=== PATIENT | female | born 1990 | race Hispanic/Latino ===

== ENCOUNTER 2024-06-06 16:12 | Emergency (ER) | payer OTHER ==
--- NOTE | 2024-06-06 17:25 | RAD REPORT ---
EXAM: Transvaginal OB HISTORY: bleeding COMPARISON: None TECHNIQUE: Multiple grayscale and color Doppler images were obtained in a transvaginal pelvic ultraso und. Spectral analysis of the Doppler waveforms of the ovaries were performed. FINDINGS: UTERUS: There is an intrauterine gestational sac. This contains a yolk sac and pole. [place]-rump length: 0.2 cm which estimates gestational age at 5 week 5 day. A heart rate is detected at 116 bpm. Small subarachnoid hemorrhage. A small amount of free fluid is seen in the pelvis. RIGHT OVARY: Normal flow without focal mass. LEFT OVARY: Normal flow without focal mass. IMPRESSION: 1. Single live intrauterine with estimated age of 5 week 5 day. 2. Small subchorionic hemorrhage which is typically of little significance but consider short-term fo llow-up ultrasound. 3. Bilateral ovarian blood flow.
[2024-06-06 18:05] LABS: Absolute Basophils 0.1 K/uL (0-0.5); Absolute Eosinophils 0.2 K/uL (0-0.5); Absolute Lymphocytes (CBC) 2.7 K/uL (0.7-4.9); Absolute Monocytes 0.6 K/uL (0.1-1.3); Absolute Neutrophil 8.8 K/uL (1.8-8.0); Basophils % 0.7 % (0-1.3); Eosinophils % 1.4 % (0-4.4); Hematocrit 41.2 % (36.0-45.0); Hemoglobin 13.8 g/dL (12.0-15.0); Lymphocytes % 22.1 % (15.3-44.8); MCH 32.2 pg (27.0-35.0); MCHC 33.6 g/dL (32.0-36.0); MPV 9.2 fL (7.6-11.3); Monocytes % 4.9 % (3.3-12.3); Neutrophils % 70.9 % (41.7-73.7); Platelets 212 thou/uL (152-406); RBC Red Blood Cell Count 4.29 M/uL (3.86-4.86)
[2024-06-06 18:16] LABS: Specific Gravity 1.006 (1.005-1.030); Sqamous Epithelial <5 /HPF (None Seen); Urine Bacteria <20 /HPF (<20); Urine Bilirubin NEGATIVE (Negative); Urine Blood 1+ (Negative); Urine Clarity Turbid (Clear); Urine Color Light-Yellow (Yellow); Urine Crystals Unidentified Few /HPF (None Seen); Urine Culture Reflex Order NOT NEEDED; Urine Glucose NEGATIVE (Negative); Urine Ketones NEGATIVE (Negative); Urine Microscopic Reflex YN ORDER UMIC; Urine Nitrite NEGATIVE (Negative); Urine Protein NEGATIVE (Negative); Urine RBC <5 /HPF (None Seen); Urine Urobilinogen Normal (Normal); Urine WBC <5 /HPF (<5); Urine pH 6.5 (5.0-7.0)
[2024-06-06 18:38] LABS: Anion Gap 9.8 mEq/L (5.0-15.0); Potassium 3.8 mEq/L (3.5-5.1)
--- NOTE | 2024-06-06 18:49 | ER ---
Nurse's Notes [facility] Name: Berenice Smith Age: 33 yrs Sex: Female : 1990 Arrival Date: 06/06/2024 Time: 16:12 Bed 20 Private MD: Diagnosis: Threatened Presentation: 06/06 16:24 Chief complaint: Patient states: she was at the help center, and was informed ap3 to come to the ED for further evaluation. patient reports a light flow of brown discharge and mild cramping of which she rates a 3/10 on the pain scale. Coronavirus screen: At this time, the client does not indicate any symptoms associated with coronavirus-19. Ebola Screen: No symptoms or risks identified at this time. Initial Sepsis Screen: Does the patient meet any 2 criteria? No. Patient's initial sepsis screen is negative. Does the patient have a suspected source of infection? No. Patient's initial sepsis screen is negative. Risk Assessment: Do you want to hurt yourself or someone else? Patient reports no desire to harm self or others. Onset of symptoms is unknown. 16:24 Method Of Arrival: Ambulatory ap3 16:24 Acuity: TRAN 3 ap3 Triage Assessment: 16:26 General: Appears in no apparent distress. Behavior is calm, cooperative, appropriate ap3 for age. Pain: Complains of pain in abdomen Pain currently is 3 out of 10 on a pain scale. Neuro: Level of Consciousness is awake, alert, obeys commands, Oriented to person, place, time, situation, Appropriate for age Gait is steady, Speech is normal. Cardiovascular: Patient's skin is warm and dry. Respiratory: Airway is patent Respiratory effort is even, unlabored, Respiratory pattern is regular, symmetrical. GI: Reports cramping. : Reports light flow of brown discharge. 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 - Infectious Disease History:: Denies. - Social history:: Smoking status: Patient denies any tobacco usage or history of. - Family history:: not pertinent. Screenin:27 [facility] ED Fall Risk Assessment (Adult) History of falling in the last 3 months, ap3 including since admission No falls in past 3 months (0 pts) Confusion or Disorientation No (0 pts) Intoxicated or Sedated No (0 pts) Impaired Gait No (0 pts) Mobility Assist Device Used No (0 pt) Altered Elimination No (0 pt) Score/Fall Risk Level 0 - 2 = Low Risk Oriented to surroundings, Maintained a safe environment, Educated pt \T\ family on fall prevention, incl call for assistance when getting out of bed, Assessed \T\ reinforced patient's understanding of fall precautions, Hourly rounding (assess needs \T\ fall precautionary measures) done, Used ambulatory aids as needed (educated on \T\ assisted with), Used gait belt as appropriate. Abuse screen: Denies threats or abuse. Nutritional screening: No deficits noted. Tuberculosis screening: No symptoms or risk factors identified. Assessment: 16:30 General: Appears comfortable, Behavior is calm, cooperative. Pain: Complains of pain in ha1 pelvis Pain does not radiate. Pain currently is 3 out of 10 on a pain scale. Quality of pain is described as crampy, Pain began 4 hours ago. Neuro: Level of Consciousness is awake, alert, obeys commands, Oriented to person, place, time, situation. Cardiovascular: Capillary refill < 3 seconds Patient's skin is warm and dry. Respiratory: Airway is patent Respiratory effort is even, unlabored, Respiratory pattern is regular, symmetrical. GI: Abdomen is round non-distended, Bowel sounds present X 4 quads. : Reports cramping, lower quadrant(s) vaginal bleeding that is light flow, spotty. 17:55 Reassessment: Patient and/or family updated on plan of care and expected duration. Pain ha1 level reassessed. Patient is alert, oriented x 3, equal unlabored respirations, skin warm/dry/pink. 18:42 Reassessment: Patient and/or family updated on plan of care and expected duration. Pain ha1 level reassessed. Patient is alert, oriented x 3, equal unlabored respirations, skin warm/dry/pink. Vital Signs: 16:24 BP 115 / 77; Pulse 75; Resp 17; Temp 98.1(O); Pulse Ox 100% on R/A; Weight 65.77 kg; ap3 Height 5 ft. 1 in. ; Pain 3/10; 17:55 BP 120 / 76; Pulse 76; Resp 17 S; Pulse Ox 100% on R/A; ha1 18:30 BP 129 / 66; Pulse 77; Resp 17 S; Temp 98.1(O); Pulse Ox 100% on R/A; ha1 16:24 Body Mass Index 27.40 (65.77 kg, 154.94 cm) ap3 16:24 Pain Scale: Adult ap3 ED Course: 16:15 Patient arrived in ED. mr 16:17 Raymond Pavon MD is Attending Physician. rt 16:18 Patient has correct armband on for positive identification. Placed in gown. Bed in low ha1 position. Call light in reach. Side rails up X 1. Adult w/ patient. 16:18 Provided Education on: plan of care . ha1 16:26 Triage completed. ap3 16:28 Arm band placed on right wrist. ap3 17:17 US Transvaginal Ob In Process Unspecified. EDIA 17:55 Serena Munoz RN is Primary Nurse. ha1 17:55 Abo/rh Typing Sent. ha1 17:55 Basic Metabolic Panel Sent. ha1 17:55 CBC with Diff Sent. ha1 17:55 Quantitative Hcg Sent. ha1 17:55 Urinalysis w/ reflexes Sent. ha1 17:56 Inserted saline lock: 20 gauge in right antecubital area, using aseptic technique. ha1 Blood collected. Flushed with 10 mL NS. 19:01 No provider procedures requiring assistance completed. IV discontinued, intact, ha1 bleeding controlled, No redness/swelling at site. Pressure dressing applied. Administered Medications: No medications were administered Medication: 18:44 VIS not applicable for this client. ha1 Outcome: 18:49 Discharge ordered by . rt 19:01 Discharged to home ambulatory, with family, ha1 19:01 Condition: stable 19:01 Discharge instructions given to patient, Instructed on discharge instructions, follow up and referral plans. Demonstrated understanding of instructions, follow-up care, 19:01 Patient left the ED. ha1 Signatures: Dispatcher [employer] EDIA Charles Dina, Reg Reg mr Brook Kline RN RN ap3 Serena Munoz RN RN ha1 [place], Raymond, MD MD rt
--- NOTE | 2024-06-06 18:49 | EDPHYS ---
Physician Documentation [facility] Name: Berenice Smith Age: 33 yrs Sex: Female : 1990 Arrival Date: 06/06/2024 Time: 16:12 Bed 20 Private MD: ED Physician Raymond Pavon HPI: 06/06 17:15 This 33 yrs old Female presents to ER via Ambulatory with complaints of rt Vaginal Bleeding, + Preg <12wks. 17:15 Patient who is a G1, P0 currently at 6 weeks presents to the ED with vaginal bleeding rt for the past 4 days, initially started as brown, then passed some clots and is now starting to lighten up with no further clots and no tissue passage. Denies any abdominal pain, acute complaints, symptoms are moderate in severity, no other aggravating or alleviating factors.. 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 - Infectious Disease History:: Denies. - Social history:: Smoking status: Patient denies any tobacco usage or history of. - Family history:: not pertinent. ROS: 17:15 Constitutional: Negative for fever, chills, and weight loss, Cardiovascular: Negative rt for chest pain, palpitations, and edema, Respiratory: Negative for shortness of breath, cough, wheezing, and pleuritic chest pain, Abdomen/GI: Negative for abdominal pain, nausea, vomiting, diarrhea, and constipation, Skin: Negative for injury, rash, and discoloration, Neuro: Negative for headache, weakness, numbness, tingling, and seizure, 17:15 : Positive for vaginal bleeding, Negative for urinary symptoms, Exam: 17:15 Constitutional: This is a well developed, well nourished patient who is awake, alert, rt and in no acute distress. Head/Face: Normocephalic, atraumatic. Chest/axilla: Normal chest wall appearance and motion. Nontender with no deformity. No lesions are appreciated. Cardiovascular: Regular rate and rhythm with a normal S1 and S2. No gallops, murmurs, or rubs. Normal PMI, no JVD. No pulse deficits. Respiratory: Lungs have equal breath sounds bilaterally, clear to auscultation and percussion. No rales, rhonchi or wheezes noted. No increased work of breathing, no retractions or nasal flaring. Abdomen/GI: Soft, non-tender, with normal bowel sounds. No distension or tympany. No guarding or rebound. No evidence of tenderness throughout. Skin: Warm, dry with normal turgor. Normal color with no rashes, no lesions, and no evidence of cellulitis. MS/ Extremity: Pulses equal, no cyanosis. Neurovascular intact. Full, normal range of motion. Neuro: Awake and alert, GCS 15, oriented to person, place, time, and situation. Cranial nerves II-XII grossly intact. Motor strength 5/5 in all extremities. Sensory grossly intact. Cerebellar exam normal. Normal gait. Vital Signs: 16:24 BP 115 / 77; Pulse 75; Resp 17; Temp 98.1(O); Pulse Ox 100% on R/A; Weight 65.77 kg; ap3 Height 5 ft. 1 in. ; Pain 3/10; 17:55 BP 120 / 76; Pulse 76; Resp 17 S; Pulse Ox 100% on R/A; ha1 18:30 BP 129 / 66; Pulse 77; Resp 17 S; Temp 98.1(O); Pulse Ox 100% on R/A; ha1 16:24 Body Mass Index 27.40 (65.77 kg, 154.94 cm) ap3 16:24 Pain Scale: Adult ap3 MDM: 16:22 Medical Screening Exam initiated rt 20:34 Differential diagnosis: Threatened AB, missed AB, ectopic . Data reviewed: rt vital signs, nurses notes, lab test result(s), radiologic studies. Counseling: I had a detailed discussion with the patient and/or guardian regarding the historical points, exam findings, and any diagnostic results supporting the discharge/admit diagnosis, lab results, radiology results, the need for outpatient follow up. 06/06 16:38 Order name: Abo/rh Typing; Complete Time: 18:34 rt 06/06 16:38 Order name: Basic Metabolic Panel; Complete Time: 18:46 rt 06/06 16:38 Order name: CBC with Diff; Complete Time: 18:11 rt 06/06 16:38 Order name: Quantitative Hcg; Complete Time: 18:46 rt 06/06 16:38 Order name: Urinalysis w/ reflexes; Complete Time: 18:34 rt 06/06 16:38 Order name: US Transvaginal Ob; Complete Time: 17:27 rt 06/06 16:38 Order name: IV Saline Lock; Complete Time: 17:55 rt 06/06 16:38 Order name: Labs collected and sent; Complete Time: 17:55 rt 06/06 16:38 Order name: NPO; Complete Time: 17:55 rt Administered Medications: No medications were administered Disposition Summary: 06/06/24 18:49 Discharge Ordered Notes: Location: Home rt Problem: new rt Symptoms: have improved rt Condition: Stable rt Diagnosis - Threatened rt Followup: rt - With: Private Physician - When: 5 - 6 days - Reason: Discharge Instructions: - Discharge Summary Sheet rt - Threatened Miscarriage rt - Vaginal Bleeding During , First Trimester rt Forms: - Medication Reconciliation Form rt - Antibiotic Education rt - Prescription Opioid Use rt - Patient Portal Instructions rt - Leadership Thank You Letter rt Signatures: Dispatcher [employer] EDMS Brook Kline RN RN ap3 Raymond Pavon MD MD rt Corrections: (The following items were deleted from the chart) 16:39 16:39 ABO/RH TYPING+BB.LAB.BRZ ordered. EDMS EDMS 16:39 16:39 BASIC METABOLIC PANEL+C.LAB.BRZ ordered. EDMS EDMS 16:39 16:39 CBC+H.LAB.BRZ ordered. EDMS EDMS 16:39 16:39 QUANTITATIVE HCG+C.LAB.BRZ ordered. EDMS EDMS 16:39 16:39 Urinalysis+U.LAB.BRZ ordered. EDMS EDMS
--- OUTSIDE RECORDS SUMMARY | 2024-06-07 02:27 | XMS REPORT | Continuity of Care Document ---
Author Name Unknown Address [address] [facility] [address] [place] [id number] [facility] thconnect Address [address] [place] [address] Care Team Providers Care Hospital Admissions Clerk Name Role Phone [email or web address] Attending Clinician Wildera claudia [email or web address] Admitting Clinician Unavaila ble Payers Payer Name Policy Type Policy Number Effective Date Expirati on Date Source [employer] - CHOICE (POS II) [id number] 2017 00:00:00 Problems Condition Name Condition Details Condition Category Status Onset Date Resolution Date Last Treatment Date Treating Clinician Comments Source Mild major depression , single episode Mild Major Depression , Single Episode Problem Active 2017-05 00:00: 00 [facility] Irregular periods Irregular Periods Problem Active 2017-05 00:00: 00 [facility] Contracept ion care education Contracept ion Care Education Problem Active 2017-05 00:00: 00 [facility] Allergies, Adverse Reactions, Alerts Allergy Name Allergy Type Status Severity Reaction(s) Onset Date Inactive Date Treating Clinician Comments Source AMOXICIL IRA TRIHYDRA TE Allergy to substanc e Active [facility] Social History Smoking Status Start Date Stop Date Source Never Smoker [facility] Medications Ordered Medication Name Filled Medication Name Start Date Stop Date Current Medication? Ordering Clinician Indication Dosage Frequency Signature (SIG) Comments Components Source intrauterin e device (IUD) Take by intrauterin e route. intrauterin e device (IUD) Take by intrauterin e route. No intrauteri ne device (IUD) Take by intrauteri ne route. [facility] multivitami n multivitami n No multivitam in [facility] Vital Signs Vital Name Observation Time Observation Value Comments S ource BP Systolic 2023-12-29 00:00:00 102 mm[Hg] [facility] Body Weight 2023-12-29 00:00:00 146 [lb_av] [facility] BP Diastolic 2023-12-29 00:00:00 75 mm[Hg] [facility] Procedures Procedure Date / Time Performed Performing Clinicia n Source Appendectomy 2005-05-10 00:00:00 [facility] En[facility] Start Date/Time End Date/Time Encounter Type Admission Type Attending Clinicians Care Facility Care Department Encounter ID Source 2023-12-29 00:00:00 2023-12-29 00:00:00 RONALD Henderson: [address], [address], [place] [address] , Ph. [facility] - [email or web address] cher Roger* [id number] [facility] 2023-08-03 00:00:00 2023-08-03 00:00:00 Outpatient [email or web address] diyala_S PRIV PRIV [id number] [facility] 2023-07-06 00:00:00 2023-07-06 00:00:00 Outpatient [email or web address] diyala_S PRIV PRIV [id number] [facility] 2023-06-28 00:00:00 2023-06-28 00:00:00 Outpatient [email or web address] diyala_S PRIV PRIV [id number] [facility] 2023-06-24 00:00:00 2023-06-24 00:00:00 Outpatient [email or web address] diyala_S PRIV PRIV [id number] [facility] 2023-03-10 00:00:00 2023-03-10 00:00:00 Outpatient [email or web address] diyala_S PRIV PRIV [id number] [facility]
[2024-06-07 04:58] VITALS: TEMP 98.1; O2SAT 100
[2024-06-07 05:01] VITALS: BP 129/66
== END 2024-06-06 19:01 | disposition home or self-care (01) ==
LOC: ER 16:12
DX: O20.0 Threatened abortion (principal)
CPT/HCPCS: 36415; 76817; 80048; 81001; 84702; 85025; 86900; 86901; 99284